=== PATIENT | female | born 1925 | race Caucasian/White ===

== ENCOUNTER → 2016-08-22 | Outpatient (CLI) | payer MEDICARE, BC ==
--- NOTE | 2016-08-23 07:35 | HKNOTE ---
DATE OF SERVICE: 08/22/2016 The patient comes in with a daughter and with an social worker assistant. She continues to complain of pain in he r right knee. A cortisone injection I gave into the right knee at the last visit helped her tremend ously. She would like to have a repeat cortisone injection. PHYSICAL EXAMINATION VITAL SIGNS: The patient's height is 5 feet 1. Weight is 200 pounds. Blood pressure 160/80, tempe rature 98.5. GENERAL: The patient can barely walk. She needs maximum assistance. EXTREMITIES: Both knees are clinically arthritic. The right knee flexes to only 105 degrees with m arked pain on attempting further flexion. IMAGING: Plain x-rays of the right knee obtained today at the [facility] show se richie degenerative osteoarthritis. DISCUSSION: If the patient were younger and healthier, I certainly would recommend a knee replaceme nt. As it is, she was given an injection of 2 mL of Kenalog and 6 mL of 2% lidocaine into the right knee . She was given a prescription for a rolling walker with a seat. She will be seen again as necessa ry for further evaluation and treatment. Dictated By: SASHA HAMM/REX Conf#: [id number] DID#: [id number]
== END | disposition home or self-care (01) ==
LOC: HKI 13:23
DX: M25.561 Pain in right knee (principal); M17.11 Unilateral primary osteoarthritis, right knee
CPT/HCPCS: 20610; G0463; J3301

== ENCOUNTER → 2016-11-28 | Outpatient (CLI) | payer MEDICARE, BC | END | disposition home or self-care (01) | LOC: HKI 13:29 | DX: M17.11 Unilateral primary osteoarthritis, right knee (principal) | CPT/HCPCS: 20610; G0463 ==

== ENCOUNTER → 2017-02-27 | Outpatient (CLI) | payer MEDICARE, BC ==
--- NOTE | 2017-02-27 19:33 | HKNOTE ---
DATE OF SERVICE: 02/27/2017 The patient comes in requesting a repeat cortisone injection into her right knee. She has exceedingly severe arthritis. She is 89 years old and in no shape to consider a knee replacement operation. She gets these injections every 3 months and they seem to give her significant relief. Examination today is unchanged since the last visit. Management under sterile conditions, an injection of 2 cc of Kenalog and 6 cc of 2 percent lidocaine into the right knee and she will be seen again as necessary. Dictated By: Ramiro Todd MD /echo/ /Document#: [id number]
== END | disposition home or self-care (01) ==
LOC: HKI 10:55
DX: M17.11 Unilateral primary osteoarthritis, right knee (principal)
CPT/HCPCS: 20610; G0463